=== PATIENT | male | born 1960 | race Caucasian/White ===

== ENCOUNTER 2020-03-23 11:07 | Emergency (ER) | payer BC, MEDICAID ==
[~2020-03-23] VITALS: Ht 170.2 cm; Wt 79.4 kg
[2020-03-23] MEDS ORDERED: KETOROLAC TROMETHAMINE 15 MG INJ IVP ONE (11:15)
[2020-03-23] MEDS ORDERED: ACETAMINOPHEN ES 500 MG TABLET PO ONE (11:15)
[2020-03-23] MEDS ORDERED: ACETAMINOPHEN ES 500 MG TABLET ONE (11:20)
[2020-03-23] MEDS ORDERED: KETOROLAC TROMETHAMINE 15 MG INJ ONE (11:20)
--- NOTE | 2020-03-23 11:28 | NUR ---
PT IS IN ROOM #2A. DR BAINS EVALUATED THE PT.
[2020-03-23 11:32] LABS: BASOPHILS # (AUTO) 0.1 K/uL (0.0-8.0); BASOPHILS % (AUTO) 0.9 % (0.0-2.0); EOSINOPHILS # (AUTO) 0.4 K/uL (0.0-0.7); EOSINOPHILS % (AUTO) 4.6 % (0.0-7.0); HEMATOCRIT 46.1 % (36.7-47.1); HEMOGLOBIN 15.5 g/dL (12.5-16.3); LYMPHOCYTES # (AUTO) 2.2 K/uL (20.0-40.0); LYMPHOCYTES % (AUTO) 28.1 % (20.5-51.5); MEAN CORPUSCULAR HEMOGLOBIN 30.6 uug (23.8-33.4); MEAN CORPUSCULAR HGB CONC 34 g/dL (32.5-36.3); MONOCYTES # (AUTO) 0.6 K/uL (2.0-10.0); MONOCYTES % (AUTO) 7.4 % (0.0-11.0); NEUTROPHILS # (AUTO) 4.6 K/uL (1.8-8.9); PLATELET COUNT (AUTO) 237 K/uL (152-348); RED BLOOD CELL COUNT(AUTO) 5.06 MIL/uL (4.06-5.63); WHITE BLOOD COUNT (AUTO) 7.8 K/uL (3.6-10.2)
[2020-03-23 11:45] LABS: CREATININE 1.1 mg/dL (0.6-1.3); POTASSIUM 4.1 mmol/L (3.5-5.1)
[2020-03-23 11:50] LABS: BILIRUBIN,DIRECT 0.1 mg/dL (0.0-0.2); TOTAL PROTEIN, SERUM 7.4 g/dL (6.4-8.2)
--- NOTE | 2020-03-23 13:09 | NUR ---
PT WAS EVALUATED BY DR BAINS. PT WAS D/C'd TO HOME. D/C INSTRUCTIONS GIVEN TO THE PT BY DR BAINS.
[2020-03-23 13:14] VITALS: BP 145/88
== END 2020-03-23 13:15 | disposition home or self-care (01) ==
LOC: ER 11:07
DX: M54.42 Lumbago with sciatica, left side (principal); M54.41 Lumbago with sciatica, right side; E78.00 Pure hypercholesterolemia, unspecified; G89.29 Other chronic pain; E83.59 Other disorders of calcium metabolism; N29 Other disorders of kidney and ureter in diseases classified elsewhere; K40.20 Bilateral inguinal hernia, without obstruction or gangrene, not specified as recurrent; K57.30 Diverticulosis of large intestine without perforation or abscess without bleeding; I70.0 Atherosclerosis of aorta; R03.0 Elevated blood-pressure reading, without diagnosis of hypertension
CPT/HCPCS: 36415; 74176; 80048; 80061; 80076; 83036; 83690; 84153; 85025; 96374; 99284; J1885; A4663; A9150; J7030